=== PATIENT | female | born 1950 | race African-American/Black ===

== ENCOUNTER → 2016-07-04 | Outpatient (CLI) | payer MEDICARE, OTHER ==
--- NOTE | 2016-07-06 10:17 | MM ---
Reason for exam: screening (asymptomatic). Last mammogram was performed 1 year and 3 months ago. History: Patient is postmenopausal. Took hormonal contraceptives for 1 year. Physical Findings: A clinical breast exam by your physician is recommended on an annual basis and results should be correlated with mammographic findings. MG 3D Screening Mammo W/Cad Bilateral CC and MLO view(s) were taken. Prior study comparison: April 03, 2015, bilateral MG screening mammo w CAD. November 08, 2013, bilateral MG screening mammo w CAD. August 22, 2012, bilateral digital screening mammo w/CAD. August 16, 2011, bilateral digital screening mammo w/CAD. There are scattered fibroglandular densities. No significant changes when compared with prior studies. ASSESSMENT: Negative, BI-RAD 1 RECOMMENDATION: Routine screening mammogram of both breasts in 1 year.
== END | disposition home or self-care (01) ==
LOC: RADMAMWWP 14:05
PROVIDERS: ATTEND Internal Medicine
DX: Z12.31 Encounter for screening mammogram for malignant neoplasm of breast (principal)
CPT/HCPCS: 77063; G0202

== ENCOUNTER → 2016-10-04 | Outpatient (CLI) | payer MEDICARE, OTHER ==
--- NOTE | 2016-10-04 16:24 | MR ---
EXAMINATION TYPE: MR brain wo con DATE OF EXAM: 10/04/2016 COMPARISON: 07/23/2013 HISTORY: Memory loss TECHNIQUE: Multiplanar, multisequence images of the brain and brainstem is performed without intravenous contras t. FINDINGS: Diffusion weighted images demonstrate no evidence of a recent infarct or other diffusion ab normality. There is no extra-axial fluid collection. Confluent areas of periventricular and subcorti twyla white matter change are seen throughout the cuello radiata and centrum semiovale involving the aguilera pratentorial and to a lesser degree of the infratentorial in the left cerebellum. The ventricular sys tem and cisternal spaces are symmetrically enlarged. There is thinning of the corpus callosum. Findin gs are compatible with age-related volume loss. The craniocervical junction appears within normal limits. The dural venous sinuses appear patent. The visualized sinuses are clear and the globes are intact. There is hypoplasia of the frontal sinuses. IMPRESSION: Diffuse cerebral atrophy and severe nonspecific white matter changes, overall similar to the prior exam of 07/23/2013, without acute intracranial abnormality.
== END | disposition home or self-care (01) ==
LOC: RADMRIMAIN 14:09
PROVIDERS: ATTEND Internal Medicine
DX: G31.9 Degenerative disease of nervous system, unspecified (principal)
CPT/HCPCS: 70551

== ENCOUNTER → 2017-02-22 | Outpatient (CLI) | payer MEDICARE, OTHER | END | disposition home or self-care (01) | LOC: LABPAT 09:09 | PROVIDERS: ATTEND Orthopaedic Surgery | DX: Z01.812 Encounter for preprocedural laboratory examination (principal) | CPT/HCPCS: 87070 ==

== ENCOUNTER → 2017-03-06 | Outpatient (CLI) | payer MEDICARE, OTHER ==
--- NOTE | 2017-03-06 16:50 | XR ---
EXAMINATION TYPE: XR chest 2V DATE OF EXAM: 03/06/2017 COMPARISON: Prior chest x-ray 10/20/2015 HISTORY: Preop TECHNIQUE: Frontal and lateral views of the chest are obtained. FINDINGS: There is no focal air space opacity, pleural effusion, or pneumothorax seen. The cardiac silhouette size is within normal limits. The osseous structures are intact. IMPRESSION: No acute cardiopulmonary process. Stable exam.
== END | disposition home or self-care (01) ==
LOC: RADXRMAIN 15:36
PROVIDERS: ATTEND Internal Medicine
DX: Z01.818 Encounter for other preprocedural examination (principal)
CPT/HCPCS: 71046

== ENCOUNTER → 2018-03-19 | Outpatient (CLI) | payer MEDICARE, OTHER ==
[2018-03-19 14:14] LABS: Basophils % (A) 0 %; Eosinophils # (A) 0.1 k/uL (0-0.7); Eosinophils % (A) 2 %; HCT 38.3 % (34.0-46.0); Lymphocytes # (A) 1.5 k/uL (1.0-4.8); Lymphocytes % (A) 27 %; MCH 29.3 pg (25.0-35.0); MCHC 31.4 g/dL (31.0-37.0); MCV 93.3 fL (80.0-100.0); Mean Platelet Volume 8.1; Monocytes # (A) 0.2 k/uL (0-1.0); Monocytes % (A) 4 %; Neutrophils # (A) 3.7 k/uL (1.3-7.7); Neutrophils % (A) 66 %; Platelet Count 296 k/uL (150-450); RBC 4.11 m/uL (3.80-5.40); RDW 14.3 % (11.5-15.5); WBC 5.6 k/uL (3.8-10.6)
[2018-03-19 21:12] LABS: Albumin 4.4 g/dL (3.80-4.90); Albumin/Globulin Ratio 1.22 (1.60-3.17); Anion Gap 8.3 mmol/L (4.00-12.00); Calcium 9.6 mg/dL (8.7-10.3); Carbon Dioxide 23.7 mmol/L (21.6-31.8); Globulin 3.6 g/dL (1.6-3.3); LDL Cholesterol,Calculated 105.4 mg/dL (0.0-131.0); Potassium 3.9 mmol/L (3.5-5.5); Total Bilirubin 0.3 mg/dL (0.3-1.2); VLDL Calculation 13.6 mg/dL (5.00-40.00)
[2018-03-19 21:18] LABS: T4, Free (Free Thyroxine) 0.7 ng/dL (0.80-1.80)
[2018-03-19 21:41] LABS: Vitamin D 25 Hydroxy 13.7 ng/mL (30.0-100.0)
== END | disposition home or self-care (01) ==
LOC: LABWHC1 11:31
PROVIDERS: ATTEND Nurse Practitioner Family
DX: E03.9 Hypothyroidism, unspecified (principal); E53.8 Deficiency of other specified B group vitamins; G40.909 Epilepsy, unspecified, not intractable, without status epilepticus
CPT/HCPCS: 36415; 80053; 80061; 82306; 82607; 82746; 84439; 84443; 85025

== ENCOUNTER → 2018-03-23 | Outpatient (CLI) | payer MEDICARE, OTHER ==
--- NOTE | 2018-03-24 06:36 | ECHOF ---
Referral Reason:R01.1 Cardiac murmur, unspecified MEASUREMENTS -------- HEIGHT: 165.1 cm WEIGHT: 63.5 kg BP: 175/90 RVIDd: 3.2 cm (< 3.3) IVSd: 1.0 cm (0.6 - 1.1) LVIDd: 3.8 cm (3.9 - 5.3) LVPWd: 0.9 cm (0.6 - 1.1) IVSs: 1.3 cm LVIDs: 2.7 cm LVPWs: 1.3 cm LA Diam: 3.0 cm (2.7 - 3.8) LAESV Index (A-L): 21.65 ml/m Ao Diam: 3.0 cm (2.0 - 3.7) AV Cusp: 1.8 cm (1.5 - 2.6) MV EXCURSION: 15.792 mm (> 18.000) MV EF SLOPE: 74 mm/s (70 - 150) EPSS: 0.3 cm MV E Dionicio: 0.72 m/s MV DecT: 222 ms MV A Dionicio: 0.85 m/s MV E/A Ratio: 0.84 RAP: 5.00 mmHg RVSP: 20.73 mmHg FINDINGS -------- Sinus rhythm. This was a technically good study. The left ventricular size is normal. Left ventricular wall thickness is normal. Overall left vent ricular systolic function is normal with, an EF between 60 - 65 %. The right ventricle is normal in size. Normal LA size by volume 22+/-6 ml/m2. The right atrium is normal in size. There is mild aortic valve sclerosis. Mild mitral regurgitation is present. Mild tricuspid regurgitation present. Right ventricular systolic pressure is normal at < 35 mmHg. There is no pulmonic regurgitation present. The aortic root size is normal. Normal inferior vena cava with normal inspiratory collapse consistent with estimated right atrial pre ssure of 5 mmHg. There is no pericardial effusion. CONCLUSIONS -------- 1. Sinus rhythm. 2. This was a technically good study. 3. The left ventricular size is normal. 4. Left ventricular wall thickness is normal. 5. Overall left ventricular systolic function is normal with, an EF between 60 - 65 %. 6. The right ventricle is normal in size. 7. Normal LA size by volume 22+/-6 ml/m2. 8. The right atrium is normal in size. 9. There is mild aortic valve sclerosis. 10. Mild mitral regurgitation is present. 11. Mild tricuspid regurgitation present. 12. Right ventricular systolic pressure is normal at < 35 mmHg. 13. There is no pulmonic regurgitation present. 14. The aortic root size is normal. 15. Normal inferior vena cava with normal inspiratory collapse consistent with estimated right atrial pressure of 5 mmHg. 16. There is no pericardial effusion. PROJECT GEOPHYSICIST: Julee Cortes RDCS
== END | disposition home or self-care (01) ==
LOC: RADECHMAIN 14:39
PROVIDERS: ATTEND Nurse Practitioner Family
DX: I08.3 Combined rheumatic disorders of mitral, aortic and tricuspid valves (principal)
CPT/HCPCS: 93306

== ENCOUNTER → 2018-04-04 | Outpatient (CLI) | payer MEDICARE, OTHER ==
--- NOTE | 2018-04-04 17:07 | US ---
EXAMINATION TYPE: US abdomen complete DATE OF EXAM: 04/04/2018 COMPARISON: NONE CLINICAL HISTORY: R01.1 SYSTOLIC MURMUR. NPO, no surgeries. EXAM MEASUREMENTS: Liver Length: 13.0 cm Gallbladder Wall: 0.1 cm CBD: 0.6 cm CHD: 0.5 cm Spleen: 8.5 cm Right Kidney: 9.5 x 4.6 x 4.3 cm Left Kidney: 9.1 x 5.3 x 4.9 cm Pancreas: wnl Liver: wnl Gallbladder: wnl Evidence for sonographic Gambino's sign: neg CBD: wnl Spleen: wnl Right Kidney: Dromedary hump visualized Left Kidney: wnl Upper IVC: wnl Abd Aorta: No AAA visualized, plaque seen IMPRESSION: 1. No suspicious acute ultrasound abnormality ultrasound abdomen. Atheromatous plaquing within the ao rta without aneurysmal dilatation.
== END | disposition home or self-care (01) ==
LOC: RADUSWWP 09:39
PROVIDERS: ATTEND Family Medicine
DX: I70.0 Atherosclerosis of aorta (principal); R01.1 Cardiac murmur, unspecified
CPT/HCPCS: 76700

== ENCOUNTER → 2018-09-13 | Outpatient (CLI) | payer MEDICARE, OTHER ==
[2018-09-13 11:26] LABS: Basophils % (A) 0 %; Eosinophils # (A) 0.1 k/uL (0-0.7); Eosinophils % (A) 2 %; HCT 37.3 % (34.0-46.0); HGB 11.8 gm/dL (11.4-16.0); Lymphocytes # (A) 1.2 k/uL (1.0-4.8); Lymphocytes % (A) 22 %; MCH 28.8 pg (25.0-35.0); MCHC 31.6 g/dL (31.0-37.0); MCV 91.1 fL (80.0-100.0); Mean Platelet Volume 7.2; Monocytes # (A) 0.2 k/uL (0-1.0); Monocytes % (A) 4 %; Neutrophils # (A) 3.7 k/uL (1.3-7.7); Neutrophils % (A) 69 %; Platelet Count 312 k/uL (150-450); RDW 14.5 % (11.5-15.5); WBC 5.3 k/uL (3.8-10.6)
[2018-09-13 16:09] LABS: African American GFR (CKD) 87.8 (60.0-200.0); Albumin 4.3 g/dL (3.80-4.90); Albumin/Globulin Ratio 1.26 (1.60-3.17); Anion Gap 8.9 mmol/L (4.00-12.00); BUN/Creat Ratio 22.5 Ratio (12.00-20.00); Calcium 9.6 mg/dL (8.7-10.3); Carbon Dioxide 23.1 mmol/L (21.6-31.8); Chol/HDL Ratio 2.53; Globulin 3.4 g/dL (1.6-3.3); LDL Cholesterol,Calculated 100.4 mg/dL (0.0-131.0); Non-African American GFR(CKD) 75.8 (60.0-200.0); Potassium 4.5 mmol/L (3.5-5.5); Total Bilirubin 0.2 mg/dL (0.2-1.2); Total Protein 7.7 g/dL (6.2-8.2); VLDL Calculation 20.6 mg/dL (5.00-40.00)
[2018-09-13 17:23] LABS: T4, Free (Free Thyroxine) 0.8 ng/dL (0.80-1.80)
== END | disposition home or self-care (01) ==
LOC: LABWHC1 10:19
PROVIDERS: ATTEND Nurse Practitioner Family
DX: E03.9 Hypothyroidism, unspecified (principal); R41.3 Other amnesia; R01.1 Cardiac murmur, unspecified; G40.909 Epilepsy, unspecified, not intractable, without status epilepticus; E53.8 Deficiency of other specified B group vitamins
CPT/HCPCS: 36415; 80053; 80061; 82607; 84439; 84443; 85025

== ENCOUNTER 2018-09-21 23:46 | Emergency (ER) | payer MEDICARE, OTHER ==
[2018-09-21 23:59] VITALS: RESP 18
[2018-09-22] MEDS ORDERED: SODIUM CHLORIDE 0.9% 1,000 ML IV STA (00:04)
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
[2018-09-22] MEDS ORDERED: MORPHINE SULFATE 4 MG/ML SYRINGE IVP STA (02:03)
--- NOTE | 2018-09-22 02:12 | XR ---
EXAM: XR Abdomen, 2 Views CLINICAL HISTORY: Abdominal pain TECHNIQUE: Frontal view of the abdomen/pelvis with upright view of the abdomen. COMPARISON: No relevant prior studies available. FINDINGS: Intraperitoneal space: No free air. Gastrointestinal tract: Unremarkable. No dilation. Bones/joints: Unremarkable. Vasculature: Probable phleboliths within the pelvis. IMPRESSION: No acute findings.
[2018-09-22 02:45] LABS: Basophils % (A) 0 %; Eosinophils # (A) 0.1 k/uL (0-0.7); Eosinophils % (A) 3 %; HCT 35.9 % (34.0-46.0); HGB 11.4 gm/dL (11.4-16.0); Lymphocytes # (A) 1.1 k/uL (1.0-4.8); Lymphocytes % (A) 29 %; MCH 29.4 pg (25.0-35.0); MCHC 31.6 g/dL (31.0-37.0); MCV 93.1 fL (80.0-100.0); Monocytes # (A) 0.3 k/uL (0-1.0); Monocytes % (A) 7 %; Neutrophils # (A) 2.3 k/uL (1.3-7.7); Neutrophils % (A) 59 %; RBC 3.86 m/uL (3.80-5.40); RDW 14.5 % (11.5-15.5)
[2018-09-22 02:51] LABS: ALT 17 U/L (9-52); AST 25 U/L (14-36); African American GFR (CKD) >90 (>60 ml/min/1.73 sqM); Albumin 3.9 g/dL (3.5-5.0); Alkaline Phosphatase 88 U/L (38-126); Amylase 105 U/L (30-110); Anion Gap 8 mmol/L; Blood Urea Nitrogen 9 mg/dL (7-17); Calcium 9.3 mg/dL (8.4-10.2); Carbon Dioxide 25 mmol/L (22-30); Chloride 110 mmol/L (98-107); Glucose 91 mg/dL (74-99); Non-African American GFR(CKD) >90 (>60 ml/min/1.73 sqM); Sodium 143 mmol/L (137-145); Total Bilirubin 0.3 mg/dL (0.2-1.3); Total Protein 8.1 g/dL (6.3-8.2)
[2018-09-22 03:03] LABS: Appearance,Urine Clear (Clear); Bilirubin,Urine Negative (Negative); Blood,Urine Negative (Negative); Color,Urine Light Yellow; Glucose,Urine (UA) Negative (Negative); Ketones,Urine Negative (Negative); Leukocyte Esterase,Urine Negative (Negative); Nitrite,Urine Negative (Negative); PH, Urine 6.5 (5.0-8.0); Protein,Urine Negative (Negative); Specific Gravity,Urine 1.007 (1.001-1.035); Urobilinogen,Urine <2.0 mg/dL (<2.0)
[2018-09-22 05:56] VITALS: BP 130/80; PULSE 80; TEMP 98.2
== END 2018-09-22 06:00 | disposition home or self-care (01) ==
LOC: EC 23:46
DX: R19.7 Diarrhea, unspecified (principal); G40.909 Epilepsy, unspecified, not intractable, without status epilepticus; E07.9 Disorder of thyroid, unspecified; Z79.82 Long term (current) use of aspirin; Z79.890 Hormone replacement therapy; Z79.899 Other long term (current) drug therapy; Z87.891 Personal history of nicotine dependence; Z95.5 Presence of coronary angioplasty implant and graft
CPT/HCPCS: 36415; 80053; 82150; 83690; 85025; 81003; 74018; 99284; 96374; 96361; J2270

== ENCOUNTER → 2018-11-08 | Outpatient (CLI) | payer MEDICARE, OTHER ==
--- NOTE | 2018-11-09 13:55 | MM ---
Reason for exam: screening (asymptomatic). Last mammogram was performed 2 years and 4 months ago. History: Patient is postmenopausal. Took hormonal contraceptives for 1 year. Physical Findings: A clinical breast exam by your physician is recommended on an annual basis and results should be correlated with mammographic findings. MG 3D Screening Mammo W/Cad Bilateral CC and MLO view(s) were taken. Prior study comparison: July 04, 2016, bilateral MG 3d screening mammo w/cad. April 03, 2015, bilateral MG screening mammo w CAD. The breast tissue is heterogeneously dense. This may lower the sensitivity of mammography. No significant changes when compared with prior studies. ASSESSMENT: Benign, BI-RAD 2 RECOMMENDATION: Routine screening mammogram of both breasts in 1 year.
== END | disposition home or self-care (01) ==
LOC: RADMAMWWP 10:32
PROVIDERS: ATTEND Family Medicine
DX: Z12.31 Encounter for screening mammogram for malignant neoplasm of breast (principal)
CPT/HCPCS: 77063; 77067

== ENCOUNTER 2019-06-03 15:19 | Emergency (ER) | payer MEDICARE, OTHER ==
[2019-06-03 15:34] VITALS: TEMP 98.2
--- NOTE | 2019-06-03 17:27 | US ---
EXAMINATION TYPE: US venous doppler duplex LE RT DATE OF EXAM: 06/03/2019 5:14 PM COMPARISON: US CLINICAL HISTORY: 69-year-old female with pain, weakness with ambulation. Pain in right leg x 1 month intermittently. No hx of DVT. Patient is not taking blood thinners. SIDE PERFORMED: Right TECHNIQUE: The lower extremity deep venous system is examined utilizing real time linear array sonog rodri with graded compression, doppler sonography and color-flow sonography. VESSELS IMAGED: External Iliac Vein (EIV) Common Femoral Vein Deep Femoral Vein Greater Saphenous Vein * Femoral Vein Popliteal Vein Small Saphenous Vein * Proximal Calf Veins (* superficial vessels) Right Leg: No evidence of DVT in veins imaged at this time from upper calf veins to EIV. Hypoechoic area with hyperechoic center seen right thigh measurin.1 x 1.2 x 0.4 cm., Suspected lymph node IMPRESSION: 1. No visualized DVT within the right lower extremity imaged from the groin to the upper calf. 2. A 1.2 x 1.1 cm ovoid structure at the level of the thigh, suspected prominent lymph node which cou ld be reactive or postinflammatory. Short interval follow-up can be performed to reassess this area.
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
[2019-06-03 18:06] VITALS: BP 156/93; PULSE 66; RESP 16
== END 2019-06-03 18:07 | disposition home or self-care (01) ==
LOC: EC 15:19
DX: M79.604 Pain in right leg (principal); M62.81 Muscle weakness (generalized); E07.9 Disorder of thyroid, unspecified; Z79.82 Long term (current) use of aspirin; Z79.890 Hormone replacement therapy; Z79.899 Other long term (current) drug therapy; Z87.891 Personal history of nicotine dependence; Z86.73 Personal history of transient ischemic attack (TIA), and cerebral infarction without residual deficits; G62.9 Polyneuropathy, unspecified; G40.909 Epilepsy, unspecified, not intractable, without status epilepticus; Z96.652 Presence of left artificial knee joint
CPT/HCPCS: 99283

== ENCOUNTER → 2019-06-06 | Outpatient (CLI) | payer MEDICARE, OTHER ==
--- NOTE | 2019-06-06 21:37 | XR ---
EXAMINATION TYPE: XR Hip Complete 2 views RT, XR femur 2 views RT DATE OF EXAM: 06/06/2019 COMPARISON: NONE HISTORY: 69-year-old female M25.551, M79.651, pain FINDINGS: Right hip: Mild marginal spurring at the right hip. Some subtle synovial calcifications could reflect CPPD. Sclerotic focus right pubic body, likely bone island. No other sclerotic foci are seen. Right femur: Subtle sclerotic focus lateral intramedullary space distal third right femoral shaft ad jacent to the cortex. Tricompartmental degenerative change at the knee. Vascular calcifications. IMPRESSION: 1. A couple sclerotic foci, one within the right pubic body and one within the distal third femoral s haft. Likely bone islands in the absence of any known primary malignancy. Consider correlation for an y abnormal laboratory elevation and nuclear medicine whole body bone scan if suspect the possibility of osseous metastatic disease. 2. Mild degenerative change at the right hip and tricompartmental OA at the knee. 3. Some synovial calcifications at both hip and knee may be idiopathic or can be seen with CPPD.
== END | disposition home or self-care (01) ==
LOC: LABWHC1 14:35
PROVIDERS: ATTEND Family Medicine
DX: M25.851 Other specified joint disorders, right hip (principal); M25.861 Other specified joint disorders, right knee; M16.11 Unilateral primary osteoarthritis, right hip; M17.11 Unilateral primary osteoarthritis, right knee; R93.7 Abnormal findings on diagnostic imaging of other parts of musculoskeletal system
CPT/HCPCS: 73502

== ENCOUNTER → 2019-07-18 | Outpatient (CLI) | payer MEDICARE, OTHER ==
--- NOTE | 2019-07-18 10:58 | US ---
EXAMINATION TYPE: US groin RT DATE OF EXAM: 07/18/2019 COMPARISON: US 2019 CLINICAL HISTORY: M25.551 rt hip pain, M89.8x5 Other specified disor. Right groin area seen on previo us venous doppler U/S TECHNIQUE/FINDINGS: Right groin: Slightly smaller 1.0 x 0.4 x 1.0cm (previously measuring 1.1 x 0.4 x 1.2 cm) lymph node seen anterior to CFV that corresponds to area seen on previous exam, multiple oth er lymph nodes seen with largest measuring 1.5 x 0.6 x 2.5cm there are no cortical thickening of thes e lymph nodes. IMPRESSION: The previously seen right superficial inguinal lymph node has become slightly smaller. M ultiple right groin lymph nodes are seen that all are within normal limits of size in short axis. No suspicious cortical thickening.
--- NOTE | 2019-07-18 14:52 | NM ---
EXAMINATION TYPE: NM bone scan whole body DATE OF EXAM: 07/18/2019 COMPARISON: X-ray 06/06/2019, ultrasound 07/18/2019 HISTORY: Right hip pain Delayed whole-body scanning was performed following the injection of 25.1 mCi Tc 99m MDP. Images acq uired 3 hours post injection. FINDINGS: There is no intense abnormal uptake involving the hip region to suggest aggressive process. Abnormal uptake involving the right knee compatible severe arthritic change. Photopenic defect left k nee compatible with postsurgical change. Abnormal uptake involving the shoulders, ankles and feet lik zuhair is post arthritic. Soft tissue contamination incidentally noted. There is abnormal uptake involvi ng the lower lumbar spine likely degenerative. Abnormal uptake is seen focally involving the lower cervical spine. IMPRESSION: 1. X-ray abnormality the right hip demonstrates no significant uptake by bone scan suggesting likely related to bone island. Correlate clinically. 2. Abnormal uptake involving the lower cervical spine and lower lumbar spine likely degenerative mayte elate with x-ray if clinically warranted.
== END | disposition home or self-care (01) ==
LOC: RADNMMAIN 09:39
PROVIDERS: ATTEND Family Medicine
DX: R93.7 Abnormal findings on diagnostic imaging of other parts of musculoskeletal system (principal); M89.8X5 Other specified disorders of bone, thigh
CPT/HCPCS: 76882; 78306; A9503

== ENCOUNTER 2019-10-20 15:10 | Observation (INO) | payer MEDICARE, OTHER ==
[2019-10-20] MEDS ORDERED: ASPIRIN 81 MG PO STA (15:38)
[2019-10-20] MEDS ORDERED: NITROGLYCERIN SL TABS 0.4 MG TAB SUBLINGUAL STA (15:38)
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
--- NOTE | 2019-10-20 16:33 | XR ---
EXAMINATION TYPE: XR chest 2V DATE OF EXAM: 10/20/2019 COMPARISON: 03/06/2017 HISTORY: Chest pain TECHNIQUE: FINDINGS: There is no heart failure nor confluent pneumonic infiltrate. Costophrenic angles are clear . There are chest leads. Bony thorax is intact. IMPRESSION: No active cardiopulmonary disease. No change.
[2019-10-20 17:10] LABS: Basophils % (A) 0 %; Eosinophils # (A) 0.2 k/uL (0-0.7); Eosinophils % (A) 3 %; HCT 38.7 % (34.0-46.0); HGB 12.3 gm/dL (11.4-16.0); Lymphocytes # (A) 1.6 k/uL (1.0-4.8); Lymphocytes % (A) 29 %; MCH 29.4 pg (25.0-35.0); MCHC 31.8 g/dL (31.0-37.0); MCV 92.7 fL (80.0-100.0); Mean Platelet Volume 7.7; Monocytes # (A) 0.4 k/uL (0-1.0); Monocytes % (A) 7 %; Neutrophils # (A) 3.2 k/uL (1.3-7.7); Neutrophils % (A) 60 %; Platelet Count 331 k/uL (150-450); RBC 4.18 m/uL (3.80-5.40); RDW 14.3 % (11.5-15.5); WBC 5.4 k/uL (3.8-10.6)
[2019-10-20 17:21] LABS: ALT 14 U/L (4-34); AST 29 U/L (14-36); African American GFR (CKD) >90 (>60 ml/min/1.73 sqM); Albumin 3.9 g/dL (3.5-5.0); Alkaline Phosphatase 101 U/L (38-126); Anion Gap 8 mmol/L; Blood Urea Nitrogen 17 mg/dL (7-17); Calcium 10.1 mg/dL (8.4-10.2); Carbon Dioxide 23 mmol/L (22-30); Chloride 110 mmol/L (98-107); Glucose 84 mg/dL (74-99); INR 0.9 (<1.2); Magnesium 1.9 mg/dL (1.6-2.3); Non-African American GFR(CKD) 82 (>60 ml/min/1.73 sqM); Potassium 4.7 mmol/L (3.5-5.1); Prothrombin Time 9.9 sec (9.0-12.0); Sodium 141 mmol/L (137-145); Total Bilirubin 0.3 mg/dL (0.2-1.3); Total Protein 8.2 g/dL (6.3-8.2)
[2019-10-20] MEDS ORDERED: NALOXONE 0.4 MG/ML 1 ML VIAL IV PRN (17:30)
[2019-10-20] MEDS ORDERED: MORPHINE SULFATE 4 MG/ML SYRINGE IVP STA (17:50)
[2019-10-20] MEDS ORDERED: IBUPROFEN 800 MG TAB PO PRN (22:00)
[2019-10-20] MEDS: carBAMazepine 200 MG TAB PO SCH (22:18)
[2019-10-21] MEDS: NITROGLYCERIN SL TABS 0.4 MG TAB SUBLINGUAL PRN ×3 (05:50→06:13)
[2019-10-21 06:11] LABS: Basophils % (A) 1 %; Eosinophils # (A) 0.1 k/uL (0-0.7); Eosinophils % (A) 1 %; HCT 35.7 % (34.0-46.0); HGB 11.2 gm/dL (11.4-16.0); Lymphocytes # (A) 1.4 k/uL (1.0-4.8); Lymphocytes % (A) 35 %; MCH 29.4 pg (25.0-35.0); MCHC 31.3 g/dL (31.0-37.0); Mean Platelet Volume 7.6; Monocytes # (A) 0.2 k/uL (0-1.0); Monocytes % (A) 6 %; Neutrophils # (A) 2.2 k/uL (1.3-7.7); Neutrophils % (A) 54 %; Platelet Count 284 k/uL (150-450); RDW 14.6 % (11.5-15.5)
[2019-10-21 06:47] LABS: African American GFR (CKD) >90 (>60 ml/min/1.73 sqM); Anion Gap 5 mmol/L; Blood Urea Nitrogen 14 mg/dL (7-17); Calcium 9.1 mg/dL (8.4-10.2); Carbon Dioxide 25 mmol/L (22-30); Chloride 110 mmol/L (98-107); Glucose 80 mg/dL (74-99); Non-African American GFR(CKD) 85 (>60 ml/min/1.73 sqM); Potassium 4.4 mmol/L (3.5-5.1); Sodium 140 mmol/L (137-145)
[2019-10-21] MEDS: ACETAMINOPHEN TAB 325 MG TAB PO PRN ×2 (06:57→20:02)
[2019-10-21] MEDS: LEVOTHYROXINE 112 MCG TAB PO SCH (06:57)
[2019-10-21] MEDS: levETIRAcetam 500 MG TAB PO SCH (08:02)
[2019-10-21] MEDS: MULTIVITAMINS, THERA 1 EACH TAB PO SCH (08:02)
[2019-10-21] MEDS: FAMOTIDINE 20 MG TAB PO SCH (08:02)
[2019-10-21] MEDS: carBAMazepine 200 MG TAB PO SCH ×2 (08:02→20:02)
[2019-10-21] MEDS ORDERED: AMINOPHYLLINE 500 MG/20 ML VIAL IV PRN (14:57)
[2019-10-21] MEDS ORDERED: REGADENOSON 0.4 MG/5 ML SYRINGE IV ONE (14:57)
[2019-10-21] MEDS ORDERED: CAFFEINE CITRATE 60 MG/3 ML VIAL IV PRN (14:57)
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
[2019-10-22] MEDS: LEVOTHYROXINE 112 MCG TAB PO SCH ×2 (04:41→10:04)
[2019-10-22] MEDS: ACETAMINOPHEN TAB 325 MG TAB PO PRN ×3 (06:08→21:39)
[2019-10-22] MEDS: FAMOTIDINE 20 MG TAB PO SCH (10:00)
[2019-10-22] MEDS: carBAMazepine 200 MG TAB PO SCH ×2 (10:00→19:58)
[2019-10-22] MEDS: levETIRAcetam 500 MG TAB PO SCH (10:00)
[2019-10-22] MEDS: ASPIRIN 81 MG PO SCH (10:00)
--- NOTE | 2019-10-22 12:38 | P.STRESS ---
- Stress Test Note Stress Test Results/Findings: Exam Performed: NM stress lexiscan cardiolite Exam Date: 10/22/19 Reason for Exam: CHEST PAIN Height: 5 ft 5 in Weight: 68.49 kg Protocol: LEXISCAN Stage: NA Duration of Exercise: NA Resting Heart Rate: 66 Resting Blood Pressure: 176/91 Maximum Achieved Heart Rate: 94 Maximum Achieved Blood Pressure: 176/91 85% PMHR: NA 100% PMHR: NA METS: NA Technologist Comment: Stress Test Results/Findings: This is a 69-year-old female with history of a hypercholesteremia, smoking, family history of ischemic heart disease and previous CVA being evaluated for chest pain. Stress data: Baseline EKG showed sinus rhythm with normal TX interval and QRS duration.. A standard dose of Lexiscan was infused. EKGs taken during and after the infusion did not reveal any significant changes from the baseline. Patient did not experience any chest pain. Final impression #1. Negative lexicon stress test #2. Report of the nuclear images to begin by the radiologist
--- NOTE | 2019-10-22 13:41 | NM ---
EXAMINATION TYPE: NM stress lexiscan cardiolite DATE OF EXAM: 10/22/2019 COMPARISON: Prior stress test 2014. HISTORY: History of tobacco use in the past and prior stroke along with hypercholesterolemia and fami ly history of heart attack presents with chest pain. TECHNIQUE: After the intravenous administration of 9.5 mCi Tc 99m Sestamibi - Cardiolite resting SPE CT images acquired 55 minutes post injection. The patient received 0.4mg Lexiscan, 24.7 mCi Tc 99m Sestamibi - Stress images obtained [address] injection FINDINGS: Review of stress and rest SPECT images demonstrates some diminished uptake involving the inferior lef t ventricular wall on stress and rest images in which old infarct cannot be excluded. No reversible i schemia is identified. Gated analysis shows normal wall motion with an estimated left ventricular eje ction fraction of 70 %. IMPRESSION: No scintigraphic evidence for reversible ischemia.
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
--- NOTE | 2019-10-22 14:36 | EST ---
Stress Test Results/Findings: Exam Performed: NM stress lexiscan cardiolite Exam Date: 10/22/19 Reason for Exam: CHEST PAIN Height: 5 ft 5 in Weight: 68.49 kg Protocol: LEXISCAN Stage: NA Duration of Exercise: NA Resting Heart Rate: 66 Resting Blood Pressure: 176/91 Maximum Achieved Heart Rate: 94 Maximum Achieved Blood Pressure: 176/91 85% PMHR: NA 100% PMHR: NA METS: NA Technologist Comment: Stress Test Results/Findings: This is a 69-year-old female with history of a hypercholesteremia, smoking, family history of ischemic heart disease and previous CVA being evaluated for chest pain. Stress data: Baseline EKG showed sinus rhythm with normal RI interval and QRS duration.. A standard dose of Lexiscan was infused. EKGs taken during and after the infusion did not reveal any significant changes from the baseline. Patient did not experience any chest pain. Final impression #1. Negative lexicon stress test #2. Report of the nuclear images to begin by the radiologist TEENA
[2019-10-22] MEDS: MULTIVITAMINS, THERA 1 EACH TAB PO SCH (15:56)
[2019-10-22] MEDS: SODIUM CHLORIDE 0.9% 1,000 ML IV SCH (16:50)
--- NOTE | 2019-10-22 17:44 | P.PN ---
Subjective This is a pleasant 69 years old -[place] female with past medical history of CVA/TIA, GERD, hyperlipidemia, osteoarthritis, rheumatoid arthritis, seizure disorder, hypothyroidism. She presents because of one-day chest pain, central and left side radiating to the left arm, was 10/10 in severity, down to 8/10, felt like sharp with no coughing or dyspnea. No leg pain or swelling Patient denies smoking, alcohol or illicit drugs Serial troponins are negative is less than 0.0123 Vitals and labs looked unremarkable. Chest x-ray: No acute process EKG showing normal sinus rhythm at [address]-T changes. In the emergency room she got aspirin. Patient still have some chest pain in the middle left side Alicia states is about 7/10 in severity, improving gradually associated with little exertion especially when she goes to the restroom. No vomiting or change in bowel habits. Patient has negative stress test today and cartilage. Her for discharge however her d- dimer came back slightly elevated at 0.7, explained to the patient and daughter at bedside the benefits and risks of CAT scan of the chest with IV contrast to rule out pulmonary embolism, including but not limited to the risk of ALLERGIC reaction and nephrotoxicity which could be permanent, they both verbalized understanding and acceptance and opted to proceed with the test. Objective - Vital Signs Vital signs: Vital Signs Temp 97.9 F 10/22/19 15:00 Pulse 78 10/22/19 15:00 Resp 16 10/22/19 15:00 BP 150/79 10/22/19 15:00 Pulse Ox 98 10/22/19 15:00 Intake & Output 10/21/19 10/22/19 10/22/19 18:59 06:59 18:59 Intake Total 540 700 Balance 540 700 Weight 68.49 kg Intake: Oral 540 700 Other: Voiding Method Toilet Toilet Toilet # Voids 2 2 1 - Exam GENERAL: The patient is alert and oriented x3, not in any acute distress. Well developed, well nourished. HEENT: Pupils are round and equally reacting to light. EOMI. No scleral icterus. No conjunctival pallor. Normocephalic, atraumatic. No pharyngeal erythema. No thyromegaly. CARDIOVASCULAR: S1 and S2 present. No murmurs, rubs, or gallops. -PULMONARY: Chest is clear to auscultation, no wheezing or crackles. Chest wall tenderness at the site of chest pain ABDOMEN: Soft, nontender, nondistended, normoactive bowel sounds. No palpable organomegaly. MUSCULOSKELETAL: No joint swelling or deformity. EXTREMITIES: No cyanosis, clubbing, or pedal edema. NEUROLOGICAL: Gross neurological examination did not reveal any focal deficits. SKIN: No rashes. no petechiae. - Labs CBC & Chem 7: 10/21/19 05:43 10/21/19 05:43 Labs: Abnormal Lab Results - Last 24 Hours (Table) 10/22/19 Range/Units 15:43 D-Dimer 0.72 H (<0.60) mg/L FEU Assessment and Plan Assessment: -Chest pain, cardiac causes ruled out, slightly elevated d-dimer, rule out PE. Could also be musculoskeletal Hyperlipidemia Rheumatoid arthritis Hypothyroidism History of seizure disorder History of CVA/TIA Plan: This is a pleasant 69 years old female who presents with chest pain, cardiology cleared the patient, elevated troponin, with the CT angiogram, PE protocol Labs and medication were reviewed.. Continue same treatment. Continue with symptomatic treatment. Resume home medication. Monitor lytes and vitals. DVT and GI prophylaxis. Further recommendations of the clinical course of the patient DVT prophylaxis: Subcutaneous heparin GI Prophylaxis: Pepcid
--- NOTE | 2019-10-22 22:07 | CT ---
EXAMINATION TYPE: CT angio chest DATE OF EXAM: 10/22/2019 COMPARISON: None HISTORY: Acute chest pain. CT DLP: 180.6 mGycm Automated exposure control for dose reduction was used. CONTRAST: Performed with IV Contrast, patient injected with 80 mL of Isovue 370. There are 3-D post processed images. The lungs are clear of consolidation. There is mild subsegmental atelectasis at the lung bases. Heart is borderline enlarged. There is no pericardial effusion. There is no pleural effusion. There is no evidence of a pulmonary mass. There is no mediastinal adenopathy. Thoracic aorta is intact. There is no aneurysm or dissection. There is normal contrast opacification of the pulmonary arteries. There are no filling defects. Upper abdominal soft tissues are intact. Thoracic spine is intact. There is no compression fracture. I see no bony destructive process. The ribs appear intact. IMPRESSION: Minimal subsegmental atelectasis at the posterior lung bases. No evidence of pulmonary embolism.
[2019-10-23] MEDS: HYDROcodone/APAP 5-325MG 1 EACH TAB PO PRN ×2 (01:50→08:04)
[2019-10-23] MEDS: SODIUM CHLORIDE 0.9% 1,000 ML IV SCH ×2 (01:53→10:03)
[2019-10-23] MEDS: LEVOTHYROXINE 112 MCG TAB PO SCH (05:52)
[2019-10-23 07:58] VITALS: BP 118/74; PULSE 73; RESP 16; TEMP 98.2
[2019-10-23] MEDS: FAMOTIDINE 20 MG TAB PO SCH (08:04)
[2019-10-23] MEDS: MULTIVITAMINS, THERA 1 EACH TAB PO SCH (08:04)
[2019-10-23] MEDS: ASPIRIN 81 MG PO SCH (08:04)
[2019-10-23] MEDS: levETIRAcetam 500 MG TAB PO SCH (08:04)
[2019-10-23] MEDS: carBAMazepine 200 MG TAB PO SCH (08:06)
[2019-10-23] MEDS ORDERED: LIDOCAINE 5% PATCH TOPICAL SCH (09:00)
--- NOTE | 2019-10-24 00:24 | P.DS ---
Providers Date of admission: 10/20/19 17:30 Attending physician: Madison Nazario Consults: 10/20/19 17:31 Consult Physician Urgent Consulting Provider: [facility] Consult Reason/Comments: acute chest pain possible acs Do you want consulting provider notified?: Yes Primary care physician: Juliann Irene Hospital Course: Diagnoses: -Chest pain, cardiac causes ruled out, slightly elevated d-dimer, rule out PE. Could also be musculoskeletal Hyperlipidemia Rheumatoid arthritis Hypothyroidism History of seizure disorder History of CVA/TIA Hospital course: This is a pleasant 69 years old -[place] female with past medical history of CVA/TIA, GERD, hyperlipidemia, osteoarthritis, rheumatoid arthritis, seizure disorder, hypothyroidism. She presents because of one-day chest pain, patient evaluated by data center operator and cleared her for discharge, d-dimer was elevated and she underwent CTA of the chest after explaining the risks and benefits which was negative for PE, chest pain started improving and patient was cleared for discharge by data center operator. On the day of discharge patient denies any other symptoms, no dyspnea, no abdominal pain or nausea vomiting and she is tolerating that well, no fever, no change in bowel habits Problems and management plan were discussed with the patient and he verbalized understanding and acceptance Patient was found stable and can be discharged home however he needs follow-up as an outpatient. Patient was instructed to follow up with PCP Dr. vizcaino and chelsea Ramirez within one week and patient agrees, also patient was instructed to follow up with Dr. Harris in 2 weeks and she agrees to call and make her on appointments, daughter at bedside agrees with the plan as well Gen: patient is a AAOx3, no distress CVS: S1-S2, RRR, no murmur Lungs: B/L CTA, no wheezing Abdomen: soft, no distention, no tenderness, positive bowel sounds Extremity: no leg edema or induration Time spent more than 35 minutes Patient Condition at Discharge: Stable Plan - Discharge Summary Discharge Rx Participant: No New Discharge Prescriptions: New Acetaminophen Tab [Tylenol] 650 mg PO Q6HR PRN tab PRN Reason: Fever And/ Or Pain Lidocaine 5% Patch [Lidoderm 5% Patch] 1 patch TOPICAL DAILY #3 patch Continue carBAMazepine [Carbamazepine] 200 mg PO BID levETIRAcetam [Keppra] 500 mg PO DAILY Multivit with Calcium,Iron,Min [Women's Multivitamin] 1 tab PO DAILY Levothyroxine Sodium [Synthroid] 112 mcg PO DAILY Famotidine 20 mg PO DAILY Discontinued Ibuprofen [Motrin Ib] 800 mg PO Q8H PRN PRN Reason: Pain Discharge Medication List carBAMazepine [Carbamazepine] 200 mg PO BID 09/09/14 [History] Famotidine 20 mg PO DAILY 10/20/19 [History] Levothyroxine Sodium [Synthroid] 112 mcg PO DAILY 10/20/19 [History] Multivit with Calcium,Iron,Min [Women's Multivitamin] 1 tab PO DAILY 10/20/19 [History] levETIRAcetam [Keppra] 500 mg PO DAILY 10/20/19 [History] Acetaminophen Tab [Tylenol] 650 mg PO Q6HR PRN tab 10/23/19 [Rx] Lidocaine 5% Patch [Lidoderm 5% Patch] 1 patch TOPICAL DAILY #3 patch 10/23/19 [Rx] Follow up Appointment(s)/Referral(s): Jean Carlos Harris DO [STAFF PHYSICIAN] - 2 Weeks (Cardiology will call with appointment time) Juliann Irene MD [Primary Care Provider] - 10/24/19 2:25 pm Patient Instructions/Handouts: Chest Pain (DC), How to Stop Smoking (DC), Heart Healthy Diet (DC) Activity/Diet/Wound Care/Special Instructions: Heart healthy diet Activity is limited till you see your doctor Discharge Disposition: HOME SELF-CARE
== END 2019-10-23 10:18 | disposition home or self-care (01) ==
LOC: EC 15:10 → 3NCARDOBS 17:30
PROVIDERS: ADMIT Hospitalist; ATTEND Hospitalist
DX: R07.89 Other chest pain (principal); E03.9 Hypothyroidism, unspecified; E78.5 Hyperlipidemia, unspecified; F03.90 Unspecified dementia, unspecified severity, without behavioral disturbance, psychotic disturbance, mood disturbance, and anxiety; F17.200 Nicotine dependence, unspecified, uncomplicated; G40.909 Epilepsy, unspecified, not intractable, without status epilepticus; I10 Essential (primary) hypertension; Z79.82 Long term (current) use of aspirin; Z79.890 Hormone replacement therapy; Z79.899 Other long term (current) drug therapy; Z86.73 Personal history of transient ischemic attack (TIA), and cerebral infarction without residual deficits; M06.9 Rheumatoid arthritis, unspecified
CPT/HCPCS: 93005 ×2; 96374; 99285; 36415; 93017; 36410; 76937; 85379; 83880; 80061; 80053; 80048; 84443; 83690; 83735; 84484; 85025 ×2; 85610; 85730; 71046; 71275; 78452; G0378 ×4; A9500; J2270; J2785; Q9967

== ENCOUNTER → 2020-10-01 | Outpatient (CLI) | payer MEDICARE, OTHER ==
--- NOTE | 2020-10-05 10:32 | MM ---
Reason for exam: screening (asymptomatic). Last mammogram was performed 1 year and 11 months ago. History: Patient is postmenopausal. Took hormonal contraceptives for 1 year. Physical Findings: A clinical breast exam by your physician is recommended on an annual basis and results should be correlated with mammographic findings. MG 3D Screening Mammo W/Cad Bilateral CC and MLO view(s) were taken. Prior study comparison: November 08, 2018, bilateral MG 3d screening mammo w/cad. July 04, 2016, bilateral MG 3d screening mammo w/cad. There are scattered fibroglandular densities. No significant changes when compared with prior studies. ASSESSMENT: Negative, BI-RAD 1 RECOMMENDATION: Routine screening mammogram of both breasts in 1 year.
== END | disposition home or self-care (01) ==
LOC: RADMAMWWP 08:43
PROVIDERS: ATTEND Family Medicine
DX: Z12.31 Encounter for screening mammogram for malignant neoplasm of breast (principal); Z78.0 Asymptomatic menopausal state
CPT/HCPCS: 77063; 77067

== ENCOUNTER → 2021-10-14 | Outpatient (CLI) | payer MEDICARE, OTHER ==
--- NOTE | 2021-10-15 10:04 | MM ---
Reason for Exam: Screening (asymptomatic). Last mammogram was performed 1 year(s) and 1 month(s) ago. Patient History: Menarche at age 11. First Full-Term at age 17. Postmenopausal. Patient has history of breast feeding. Patient used Hormonal Contraceptives for 1 year. Risk Values: Martina 5 year model risk: 1.4%. NCI Lifetime model risk: 3.8%. Prior Study Comparison: 07/04/2016 Bilateral Screening Mammogram, [facility]. 11/08/2018 Bilateral Screening Mammogram, [facility]. 10/01/2020 Bilateral Screening Mammogram, [facility]. Tissue Density: There are scattered fibroglandular densities. Findings: Analyzed By CAD. No suspicious groups of microcalcifications, spiculated or lobular masses, architectural distortion or other secondary signs of malignancy are mammographically apparent. Overall Assessment: Benign, BI-RAD 2 Management: Screening Mammogram of both breasts in 1 year. A negative mammogram report should not preclude additional follow up of suspicious palpable abnormalities. Patient should continue monthly self breast exam. A clinical breast exam by your physician is recommended on an annual basis and results should be correlated with mammographic findings. Electronically signed and approved by: Dontae Summers D.O. Radiologis
== END | disposition home or self-care (01) ==
LOC: RADMAMWWP 14:39
PROVIDERS: ATTEND Family Medicine
DX: Z12.31 Encounter for screening mammogram for malignant neoplasm of breast (principal); Z78.0 Asymptomatic menopausal state
CPT/HCPCS: 77063; 77067

== ENCOUNTER → 2022-01-25 | Outpatient (CLI) | payer MEDICARE, OTHER ==
[2022-01-25 18:51] LABS: Basophils # (A) 0 X 10*3/uL (0.00-0.10); Basophils % (A) 0 %; Eosinophils # (A) 0.01 X 10*3/uL (0.04-0.35); Eosinophils % (A) 0.2 %; HCT 43.9 % (37.2-46.3); HGB 13.7 g/dL (12.0-15.0); Immature Grans, Automated 0 %; Lymphocytes # (A) 1.51 X 10*3/uL (0.90-5.00); Lymphocytes % (A) 34.5 %; MCH 29.3 pg (27.0-32.0); MCHC 31.2 g/dL (32.0-37.0); MCV 93.8 fL (80.0-97.0); Monocytes # (A) 0.28 X 10*3/uL (0.20-1.00); Monocytes % (A) 6.4 %; NRBC Per 100 WBC 0 /100 WBCS (0.0-0.0); Neutrophils # (A) 2.58 X 10*3/uL (1.80-7.70); Neutrophils % (A) 58.9 %; Platelet Count 229 X 10*3/uL (140-440); RBC 4.68 X 10*6/uL (4.10-5.20); WBC 4.38 X 10*3/uL (4.50-10.00)
[2022-01-25 18:55] LABS: Protein, Total 9.1 g/dL (6.2-8.2)
[2022-01-25 19:05] LABS: African American GFR (CKD) 74.1 (60.0-200.0); Albumin 4.6 g/dL (3.8-4.9); Albumin/Globulin Ratio 1.01 (1.60-3.17); Anion Gap 17.1 mmol/L (10.00-18.00); BUN/Creat Ratio 13.92 Ratio (12.00-20.00); Blood Urea Nitrogen 12.6 mg/dL (9.0-27.0); Carbon Dioxide 21.2 mmol/L (20.0-27.5); Globulin 4.5 g/dL (1.6-3.3); Non-African American GFR(CKD) 63.9 (60.0-200.0); Potassium 4.7 mmol/L (3.5-5.5); Total Bilirubin 0.3 mg/dL (0.30-1.20); Total Protein 9.1 g/dL (6.2-8.2)
[2022-01-26 12:45] LABS: Albumin 4.2 g/dL (3.80-4.90); Gamma Globulin 2.36 g/dL (0.70-1.50)
== END | disposition home or self-care (01) ==
LOC: LABWHC1 11:48
PROVIDERS: ATTEND Nurse Practitioner Family
DX: E53.8 Deficiency of other specified B group vitamins (principal); G40.909 Epilepsy, unspecified, not intractable, without status epilepticus; R77.1 Abnormality of globulin
CPT/HCPCS: 36415; 80053; 80177; 82607; 82746; 83036; 84165; 85025

== ENCOUNTER → 2022-08-17 | Outpatient (CLI) | payer MEDICARE, OTHER ==
[2022-08-17 21:36] LABS: Basophils # (A) 0.01 X 10*3/uL (0.00-0.10); Basophils % (A) 0.2 %; Eosinophils # (A) 0.02 X 10*3/uL (0.04-0.35); Eosinophils % (A) 0.3 %; HCT 44.9 % (37.2-46.3); HGB 13.7 d/dL (12.0-15.0); Lymphocytes # (A) 1.62 X 10*3/uL (0.90-5.00); Lymphocytes % (A) 26.1 %; MCH 28.9 pg (27.0-32.0); MCHC 30.5 d/dL (32.0-37.0); MCV 94.7 FL (80.0-97.0); Mean Platelet Volume 11.1 FL (9.5-12.2); Monocytes # (A) 0.43 X 10*3/uL (0.20-1.00); Monocytes % (A) 6.9 %; NRBC Per 100 WBC 0 X 10*3/uL (0.00-0.01); Neutrophils # (A) 4.11 X 10*3/uL (1.80-7.70); Neutrophils % (A) 66.2 %; Platelet Count 315 X 10*3/uL (140-440); RBC 4.74 X 10*6/uL (4.10-5.20); RDW 14.2 % (11.5-14.5); WBC 6.21 X 10*3/uL (4.50-10.00)
[2022-08-17 21:52] LABS: ALT 18 U/L (8-44); AST 32 U/L (13-35); Albumin 4.3 d/dL (3.8-4.9); Albumin/Globulin Ratio 0.98 Ratio (1.60-3.17); Alkaline Phosphatase 115 U/L (41-126); BUN/Creat Ratio 15.82 Ratio (12.00-20.00); Blood Urea Nitrogen 17.4 mg/dL (9.0-27.0); Calcium 9.8 mg/dL (8.7-10.3); Carbon Dioxide 21.5 mmol/L (21.6-31.8); Chloride 107 mmol/L (96-109); Globulin 4.4 d/dL (1.6-3.3); Glucose 87 mg/dL (70-110); Magnesium 2.2 mg/dL (1.5-2.4); Potassium 4.2 mmol/L (3.5-5.5); Sodium 142 mmol/L (135-145); Total Bilirubin 0.3 mg/dL (0.3-1.2); Total Protein 8.7 d/dL (6.2-8.2)
== END | disposition home or self-care (01) ==
LOC: LABWHC1 10:42
PROVIDERS: ATTEND Nurse Practitioner Family
DX: I10 Essential (primary) hypertension (principal); E53.8 Deficiency of other specified B group vitamins; K21.9 Gastro-esophageal reflux disease without esophagitis; E03.9 Hypothyroidism, unspecified; G40.909 Epilepsy, unspecified, not intractable, without status epilepticus
CPT/HCPCS: 36415; 80053; 80177; 82306; 83036; 83721; 83735; 84439; 84443; 85025

== ENCOUNTER → 2022-10-25 | Outpatient (CLI) | payer MEDICARE, OTHER ==
--- NOTE | 2022-10-26 09:35 | MM ---
Reason for Exam: Screening (asymptomatic). Last screening mammogram was performed 12 month(s) ago. Patient History: Menarche at age 11. First Full-Term at age 17. Postmenopausal. Patient has history of breast feeding. Patient used Hormonal Contraceptives for 1 year. Maternal aunt had breast cancer at or over age 50. Risk Values: Martina 5 year model risk: 1.8%. NCI Lifetime model risk: 4.4%. Prior Study Comparison: 04/03/2015 Bilateral Screening Mammogram, [facility]. 07/04/2016 Bilateral Screening Mammogram, [facility]. 11/08/2018 Bilateral Screening Mammogram, [facility]. 10/01/2020 Bilateral Screening Mammogram, [facility]. 10/14/2021 Bilateral MG 3D screening mammo w/cad, [facility]. Tissue Density: There are scattered fibroglandular densities. Findings: Analyzed By CAD. There is no suspicious group of microcalcifications or new suspicious mass. Overall Assessment: Negative, BI-RAD 1 Management: Screening Mammogram of both breasts in [address] [facility] will attempt to contact patient to return for supplemental views and ultrasound if indicated. Patient should continue monthly self-breast exams. A clinical breast exam by your physician is recommended on an annual basis. This exam should not preclude additional follow-up of suspicious palpable abnormalities. Note on Martina scores and lifetime risk: 1. A Martina score greater than 3% is considered moderate risk. If this is the case, consider specialist referral to assess eligibility for a risk reducing agent. 2. If overall lifetime risk for the development of breast cancer is 20% or higher, the patient may qualify for future screening with alternating mammogram and breast MRI. Electronically signed and approved by: Sylvain Oh DO
== END | disposition home or self-care (01) ==
LOC: RADMAMWWP 07:21
PROVIDERS: ATTEND Family Medicine
DX: Z12.31 Encounter for screening mammogram for malignant neoplasm of breast (principal); Z78.0 Asymptomatic menopausal state; Z80.3 Family history of malignant neoplasm of breast
CPT/HCPCS: 77063; 77067

== ENCOUNTER → 2022-11-22 | Outpatient (CLI) | payer MEDICARE, OTHER ==
[2022-11-22 13:30] LABS: Creatinine,Urine Random 89.1 mg/dL; Protein/Creatinine Ratio,Urine 0.146
[2022-11-22 20:13] LABS: HCT 40.7 % (37.2-46.3); HGB 12.7 d/dL (12.0-15.0); MCH 29.7 pg (27.0-32.0); MCHC 31.2 d/dL (32.0-37.0); MCV 95.1 FL (80.0-97.0); Mean Platelet Volume 11.2 FL (9.5-12.2); NRBC Per 100 WBC 0 X 10*3/uL (0.00-0.01); Platelet Count 267 X 10*3/uL (140-440); RBC 4.28 X 10*6/uL (4.10-5.20); RDW 13.2 % (11.5-14.5); WBC 4.64 X 10*3/uL (4.50-10.00)
[2022-11-22 22:30] LABS: Appearance,Urine Clear (Clear); Bilirubin,Urine Negative (Negative); Blood,Urine Negative (Negative); Color,Urine Yellow (Yellow); Ketones,Urine Negative (Negative); Nitrite,Urine Negative (Negative); Urobilinogen,Urine 0.2 E.U./DL
[2022-11-22 22:48] LABS: Bacteria,Urine Trace
[2022-11-22 22:57] LABS: Microalbumin Creatinine Ratio <14 mg/g Cr (0-30); Urine Creatinine 88.8 mg/dL (28.0-217.0)
[2022-11-22 23:23] LABS: ALT 16 U/L (8-44); AST 28 U/L (13-35); Albumin 4.4 d/dL (3.8-4.9); Albumin/Globulin Ratio 1.07 Ratio (1.60-3.17); Alkaline Phosphatase 102 U/L (41-126); BUN/Creat Ratio 10.56 Ratio (12.00-20.00); Blood Urea Nitrogen 9.5 mg/dL (9.0-27.0); Carbon Dioxide 22.6 mmol/L (21.6-31.8); Chloride 106 mmol/L (96-109); Globulin 4.1 d/dL (1.6-3.3); Glucose 86 mg/dL (70-110); Magnesium 2.1 mg/dL (1.5-2.4); Phosphorus 3.3 mg/dL (2.4-5.1); Potassium 4.8 mmol/L (3.5-5.5); Sodium 142 mmol/L (135-145); Total Bilirubin 0.4 mg/dL (0.3-1.2); Total Protein 8.5 d/dL (6.2-8.2)
== END | disposition home or self-care (01) ==
LOC: LABWHC1 11:01
PROVIDERS: ATTEND Internal Medicine
DX: R94.4 Abnormal results of kidney function studies (principal)
CPT/HCPCS: 36415; 80053; 81001; 82043; 82570; 83735; 84100; 84156; 85027

== ENCOUNTER → 2023-01-24 | Outpatient (CLI) | payer MEDICARE, OTHER ==
[2023-01-24 12:42] LABS: Carbamazepine (Tegretol) <3.0 ug/mL
== END | disposition home or self-care (01) ==
LOC: LABWHC1 10:35
PROVIDERS: ATTEND Psychiatry & Neurology Neurology
DX: G60.8 Other hereditary and idiopathic neuropathies (principal); Z79.899 Other long term (current) drug therapy
CPT/HCPCS: 36415; 80156; 80177; 82607; 82746

== ENCOUNTER → 2023-06-30 | Outpatient (CLI) | payer MEDICARE, OTHER ==
[2023-06-30 18:28] LABS: HCT 39.9 % (37.2-46.3); HGB 12.5 g/dL (12.0-15.0); MCH 29.4 pg (27.0-32.0); MCHC 31.3 g/dL (32.0-37.0); MCV 93.9 FL (80.0-97.0); NRBC Per 100 WBC 0 X 10*3/uL (0.00-0.01); Platelet Count 305 X 10*3/uL (140-440); RBC 4.25 X 10*6/uL (4.10-5.20); RDW 14.9 % (11.5-14.5); WBC 3.61 X 10*3/uL (4.50-10.00)
[2023-06-30 19:50] LABS: Appearance,Urine Clear (Clear); Bilirubin,Urine Negative (Negative); Blood,Urine Negative (Negative); Color,Urine Yellow (Yellow); Ketones,Urine Negative (Negative); Nitrite,Urine Negative (Negative); PH, Urine 6.5; Specific Gravity,Urine 1.013 (1.001-1.030)
[2023-06-30 21:20] LABS: Microalbumin Creatinine Ratio <11 mg/g Cr (0-30)
== END | disposition home or self-care (01) ==
LOC: LABWHC1 14:47
PROVIDERS: ATTEND Internal Medicine
DX: N18.31 Chronic kidney disease, stage 3a (principal); D63.1 Anemia in chronic kidney disease; M10.9 Gout, unspecified; N39.0 Urinary tract infection, site not specified; E55.9 Vitamin D deficiency, unspecified; E21.3 Hyperparathyroidism, unspecified; R80.9 Proteinuria, unspecified
CPT/HCPCS: 36415; 81003; 82043; 82570; 83970; 84166; 85027

== ENCOUNTER → 2023-07-03 | Outpatient (CLI) | payer MEDICARE, OTHER ==
[2023-07-03 19:35] LABS: % Iron Saturation 28.53 (12.00-45.00); Iron 107 UG/DL (50-170); Magnesium 2.2 mg/dL (1.5-2.4); Phosphorus 3.1 mg/dL (2.4-5.1); Total Iron Binding Capacity 375 UG/DL (228-460); Uric Acid 5.9 mg/dL (2.9-7.7)
[2023-07-03 19:50] LABS: ALT 35 U/L (8-44); AST 58 U/L (13-35); Albumin 4.7 g/dL (3.8-4.9); Albumin/Globulin Ratio 1.07 Ratio (1.60-3.17); Alkaline Phosphatase 97 U/L (41-126); Blood Urea Nitrogen 7.2 mg/dL (9.0-27.0); Calcium 10.4 mg/dL (8.7-10.3); Carbon Dioxide 21.6 mmol/L (21.6-31.8); Chloride 104 mmol/L (96-109); Globulin 4.4 g/dL (1.6-3.3); Glucose 92 mg/dL (70-110); Potassium 4.6 mmol/L (3.5-5.5); Sodium 139 mmol/L (135-145); Total Bilirubin 0.4 mg/dL (0.3-1.2); Total Protein 9.1 g/dL (6.2-8.2)
[2023-07-04 13:09] LABS: Free Kappa Lt Chain Qnt, Serum 5.37 mg/dL (0.33-1.94); Free Lambda Lt Chain Qnt, Seru 2.32 mg/dL (0.57-2.63)
== END | disposition home or self-care (01) ==
LOC: LABWHC1 12:41
PROVIDERS: ATTEND Internal Medicine
DX: N25.81 Secondary hyperparathyroidism of renal origin (principal); N18.31 Chronic kidney disease, stage 3a; D63.1 Anemia in chronic kidney disease; N39.0 Urinary tract infection, site not specified; R80.9 Proteinuria, unspecified; E55.9 Vitamin D deficiency, unspecified; M10.9 Gout, unspecified; E21.3 Hyperparathyroidism, unspecified
CPT/HCPCS: 36415; 80053; 82306; 82728; 83540; 83550; 83735; 83883; 84100; 84550; 86334

== ENCOUNTER → 2023-11-02 | Outpatient (CLI) | payer MEDICARE, OTHER ==
--- NOTE | 2023-11-07 07:53 | MM ---
Reason for Exam: Screening (asymptomatic). Last screening mammogram was performed 12 month(s) ago. Patient History: Menarche at age 11. First Full-Term at age 17. Postmenopausal. Patient has history of breast feeding. Patient used Hormonal Contraceptives for 1 year. Maternal aunt had breast cancer at or over age 50. Risk Values: Martina 5 year model risk: 1.8%. NCI Lifetime model risk: 4.2%. Prior Study Comparison: 10/01/2020 Bilateral Screening Mammogram, [facility]. 10/14/2021 Bilateral MG 3D screening mammo w/cad, [facility]. 10/25/2022 Bilateral MG 3D screening mammo w/cad, [facility]. Tissue Density: The breasts are heterogeneously dense, which may obscure small masses. Findings: Analyzed By CAD. There is no suspicious group of microcalcifications or new suspicious mass in either breast. Tiny calcifications. Overall Assessment: Benign, BI-RAD 2 Management: Screening Mammogram of both breasts in 1 year. . Patient should continue monthly self-breast exams. A clinical breast exam by your physician is recommended on an annual basis. This exam should not preclude additional follow-up of suspicious palpable abnormalities. Note on Martina scores and lifetime risk: 1. A Martina score greater than 3% is considered moderate risk. If this is the case, consider specialist referral to assess eligibility for a risk reducing agent. 2. If overall lifetime risk for the development of breast cancer is 20% or higher, the patient may qualify for future screening with alternating mammogram and breast MRI. [facility], , 11/07/2023 7:50 AM. Electronically signed and approved by: Nirmal Chinchilla M.D. Radiologis
== END | disposition home or self-care (01) ==
LOC: RADMAMWWP 13:04
PROVIDERS: ATTEND Family Medicine
CPT/HCPCS: 77063; 77067

== ENCOUNTER → 2024-02-01 | Outpatient (CLI) | payer MEDICARE, OTHER ==
--- NOTE | 2024-02-01 15:11 | US ---
EXAMINATION TYPE: US thyroid st tissue head/neck DATE OF EXAM: 02/01/2024 COMPARISON: NONE CLINICAL INDICATION: Female, 73 years old with history of E03.9 HYPOTHYROIDISM; On thyroid meds. TECHNIQUE: Grayscale and color Doppler imaging of the thyroid gland. FINDINGS: GLAND SIZE: Right Lobe: 1.7 x 0.5 x 0.6 cm Overall Parenchyma: heterogeneous Left Lobe: 2.2 x 0.7 x 0.7 cm Overall Parenchyma: heterogeneous Isthmus Thickness: 0.1 cm NODULES RIGHT: # of nodules measured on right: 0 LEFT: # of nodules measured on left: 0 ISTHMUS: # of nodules measured in the isthmus: 0 Bilateral neck scanned, no evidence of lymphadenopathy. IMPRESSION: Thyroid heterogeneous in appearance which can be associated with thyroiditis. No solid or cystic thyr oid nodules. 2017 ACR TI-RADS LEVEL: TR-RADS 1 - BENIGN: No FNA *Highest TI-RADS level nodule reported [email or web address] [facility], , 02/01/2024 3:09 PM
== END | disposition home or self-care (01) ==
LOC: RADUSWWP 14:36
PROVIDERS: ATTEND Family Medicine
DX: E03.9 Hypothyroidism, unspecified (principal); E06.9 Thyroiditis, unspecified
CPT/HCPCS: 76536

== ENCOUNTER → 2024-02-21 | Outpatient (CLI) | payer MEDICARE, OTHER ==
[2024-02-21 19:51] LABS: Carbamazepine (Tegretol) 4.2 UG/ML (4.0-12.0)
== END | disposition home or self-care (01) ==
LOC: LABWHC1 11:37
PROVIDERS: ATTEND Psychiatry & Neurology Neurology
DX: G40.009 Localization-related (focal) (partial) idiopathic epilepsy and epileptic syndromes with seizures of localized onset, not intractable, without status epilepticus (principal); E53.8 Deficiency of other specified B group vitamins
CPT/HCPCS: 36415; 80156; 80177; 82607; 82746

== ENCOUNTER → 2024-04-24 | Outpatient (CLI) | payer MEDICARE, OTHER ==
[2024-04-24 15:01] LABS: ALT 21 U/L (8-44); AST 30 U/L (13-35); Albumin 4.5 g/dL (3.8-4.9); Alkaline Phosphatase 96 U/L (41-126); BUN/Creat Ratio 17.78 Ratio (12.00-20.00); Calcium 10.1 mg/dL (8.7-10.3); Chloride 102 mmol/L (96-109); Globulin 4.5 g/dL (1.6-3.3); Glucose 91 mg/dL (70-110); Magnesium 2.2 mg/dL (1.5-2.4); Sodium 141 mmol/L (135-145); Total Bilirubin 0.3 mg/dL (0.3-1.2)
[2024-04-24 15:22] LABS: HCT 38.8 % (37.2-46.3); HGB 12.3 g/dL (12.0-15.0); MCH 29.8 pg (27.0-32.0); MCHC 31.7 g/dL (32.0-37.0); MCV 93.9 FL (80.0-97.0); Mean Platelet Volume 11.3 FL (9.5-12.2); NRBC Per 100 WBC 0 X 10*3/uL (0.00-0.01); Platelet Count 335 X 10*3/uL (140-440); RBC 4.13 X 10*6/uL (4.10-5.20); RDW 13.5 % (11.5-14.5); WBC 4.25 X 10*3/uL (4.50-10.00)
[2024-04-25 11:31] LABS: Free Kappa Lt Chain Qnt, Serum 4.59 mg/dL (0.33-1.94)
== END | disposition home or self-care (01) ==
LOC: LABWHC1 12:08
PROVIDERS: ATTEND Internal Medicine
DX: N18.31 Chronic kidney disease, stage 3a (principal)
CPT/HCPCS: 36415; 80053; 83735; 83883; 84100; 85027; 86334

== ENCOUNTER → 2024-09-03 | Outpatient (CLI) | payer MEDICARE, OTHER ==
[2024-09-03 19:38] LABS: Vitamin B12 523.0 pg/mL (200.0-944.0)
[2024-09-03 20:26] LABS: Carbamazepine (Tegretol) 4.9 UG/ML (4.0-12.0)
== END | disposition home or self-care (01) ==
LOC: LABWHC1 10:15
PROVIDERS: ATTEND Psychiatry & Neurology Neurology
DX: G40.009 Localization-related (focal) (partial) idiopathic epilepsy and epileptic syndromes with seizures of localized onset, not intractable, without status epilepticus (principal); E53.8 Deficiency of other specified B group vitamins
CPT/HCPCS: 36415; 80156; 80177; 82607; 82746